=== PATIENT | male | born 1985 | race Caucasian/White ===

== ENCOUNTER 2017-03-21 15:49 | Emergency (ER) | payer SELFPAY ==
[~2017-03-21] VITALS: Ht 177.8 cm; Wt 77.3 kg
[2017-03-21 15:59] VITALS: Ht 177.8 cm; Wt 77.3 kg
--- NOTE | 2017-03-21 16:47 | RADRPT ---
PROCEDURE: CT facial bones without. CLINICAL INDICATION: Temporal mandibular joint dislocation. TECHNIQUE: A CT of the facial bones was performed on a multidetector CT scanner utilizing high-res olution axial images. Sagittal, coronal, and multiplanar reformatted images were made. Additionall y, 3-D reformatted images were made. The CTDIvol is 29.45 mGy and the DLP is 563.99 mGy-cm. One or more of the following dose reduction techniques were utilized: Automated exposure control, adjustme nt of the mA and/or kV according to patient size, use of iterative reconstruction technique. COMPARISON: None. FINDINGS: There is bilateral anterior dislocation of the temporomandibular joints with the mandibular condyles displaced anterior and superior to the articular eminence. There is no demonstrable fracture or os teochondral defect. The articular disk is best evaluated with MRI. No other maxillofacial fracture s identified. The mandible is otherwise intact. The orbits, as visualized, appear intact. The ove rlying soft tissues are grossly unremarkable. The visualized paranasal sinuses are clear. IMPRESSION: 1. Bilateral anterior dislocation of the temporomandibular joints with a tubular condyles displaced anterior and superior to the articular eminence of the temporal bone. 2. No demonstrable fracture or osteochondral defect. No other osseous abnormality is identified. The remaining maxillofacial structures are unremarkable. 3. MRI may be considered for evaluation of the temporomandibular joint and intra-articular meniscal disk. RPTAT:AAJJ Physician Patsy Date Time Electronically viewed and signed by Physician Patsy on 03/21/2017 16:47 KELSI/
[2017-03-21] MEDS ORDERED: SOD CHLORIDE 0.9% 1,000 ML IV STA (16:51)
[2017-03-21] MEDS ORDERED: PROPOFOL 200 MG INJ IV ONE (17:00)
[2017-03-21] MEDS ORDERED: ETOMIDATE 20 MG INJ IV ONE (17:30)
--- NOTE | 2017-03-21 18:15 | ERD ---
ER Documentation Chief Complaint Date/Time DATE: 03/21/17 TIME: 18:12 Chief Complaint WOKE UP FROM NAP WITH MOUTH STUCK OPEN HPI This is a 31-year-old male who presents to the emergency room for evaluation of "my jaw is dislocated ankle. 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 The patient states that he has had previous jaw dislocations in his jaws been this looking for 5 days now. He states he tried to reduce it himself however he was unsuccessful. He is told his nurse that this occurred today and 5 days ago however the patient tells me this occurred 5 days ago. Patient is inconsistent in his history ROS All systems reviewed and are negative except as per history of present illness. Physical Exam Vitals Vital Signs Date Time Temp Pulse Resp B/P Pulse Ox O2 Delivery O2 Flow Rate FiO2 03/21/17 17:55 5.0 03/21/17 17:50 88 17 125/90 100 Nasal Cannula 8.0 03/21/17 17:45 92 17 137/94 100 Nasal Cannula 15.0 03/21/17 17:40 95 14 142/89 100 Nasal Cannula 15.0 03/21/17 17:39 105 17 125/98 100 Nasal Cannula 3.0 03/21/17 15:59 97.9 135 16 132/93 98 Physical Exam Const: No acute distress Head: Atraumatic Eyes: Normal Conjunctiva ENT: Holding jaw open, normal External Ears, Nose and Mouth. Neck: Full range of motion..~ No meningismus. Resp: Clear to auscultation bilaterally Cardio: Regular rate and rhythm, no murmurs Abd: Soft, non tender, non distended. Normal bowel sounds Skin: No petechiae or rashes Back: No midline or flank tenderness Ext: No cyanosis, or edema Neur: Awake and alert Psych: Normal Mood and Affect Results 24 hrs Current Medications Medications (Trade) Dose Ordered Sig/Nia Route PRN Reason Start Time Stop Time Status Last Admin Dose Admin Propofol 100 mg 100 mg ONCE ONCE IV 03/21/17 17:00 03/21/17 17:01 DC Sodium Chloride (NS) 1,000 ml @ 1,000 mls/hr Q1H STAT IV 03/21/17 16:51 03/21/17 17:50 DC 03/21/17 17:40 Etomidate (Amidate) 20 mg ONCE ONCE IV 03/21/17 17:30 03/21/17 17:31 DC 03/21/17 17:53 Procedures/MDM CT max face: 1. Bilateral anterior dislocation of the temporomandibular joints with a tubular condyles displaced anterior and superior to the articular eminence of the temporal bone. 2. No demonstrable fracture or osteochondral defect. No other osseous abnormality is identified. The remaining maxillofacial structures are unremarkable. 3. MRI may be considered for evaluation of the temporomandibular joint and intra-articular meniscal disk. Procedural Sedation: Pre-assessment performed. See preceding complete history and physical for details. Time out performed. See sedation documentation for details. Medication(s): Etomidate 20 mg Complications: No hypoxic or apneic events Recovered without incident. Greater than 15 minutes of face to face time included in sedation and recovery. This 31-year-old male presents to the ER for evaluation of jaw dislocation. This patient is very consistent historian told me that he has had a dislocated jaw for 5 days however he told his nurse that is always dislocated this morning when he woke up. 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 This patient had a CAT scan which showed bilateral anterior dislocation of the TMJ. The patient was given etomidate with a successful reduction of his jaw. The patient had no hypoxic events and will be discharged at this time with a referral for ENT. Departure Diagnosis: Primary Impression: Jaw dislocation Condition: Stable AIDA WALTER DO Mar 21, 2017 18:15
[2017-03-21] MEDS ORDERED: IBUP-1542 PO (18:16)
[2017-03-21 19:33] VITALS: BP 129/82; PULSE 80; RESP 17
== END 2017-03-21 19:35 | disposition home or self-care (01) ==
LOC: FTE 15:49
DX: S03.03XA Dislocation of jaw, bilateral, initial encounter (principal); X58.XXXA Exposure to other specified factors, initial encounter; Y92.9 Unspecified place or not applicable
CPT/HCPCS: 21480; 70486; 99285; J7030